=== PATIENT | female | born 1930 | race Caucasian/White ===

== ENCOUNTER 2018-11-28 11:52 | Inpatient (IN) | payer MEDICARE, OTHER | END 2018-12-02 20:57 | disposition short-term general hospital (02) | LOC: ED 11:52 → MED SURG 15:39 ==

== ENCOUNTER 2018-12-26 14:30 | Inpatient (IN) | payer MEDICARE, OTHER ==
--- NOTE | 2018-12-26 14:48 | ERPHSYRPT ---
- History of Present Illness Time Seen by Provider: 12/26/18 14:35 Source: patient, EMS Exam Limitations: no limitations Physician History: Patient has had extremity swelling and dyspnea for two weeks. Patient had her Lasix increased without any relief. Patient was referred to the emergency department due to having the swelling and no response to the Lasix. Timing/Duration: week(s) (2) Activities at Onset: rest Severity of Dyspnea-Max: moderate Severity of Dyspnea-Current: mild Possible Cause: frequent episodes Modifying Factors: Improves With: activity (worsens), lying down (worsens) Associated Symptoms: constant, edema, weakness, leg swelling (arms swelling), No chest pain/discomfort, No fever, No insomnia, No loss of appetite, No lightheadedness, No wheezing, No ankle swelling, No hemoptysis, No calf pain, No dizziness, No heaviness, No heart racing, No lightheadedness, No muscle spasms feet, No muscle spasms hands, No painful breathing, No productive cough, No sweating, No tightness, No tingling face International travel in last 2 weeks: No Allergies/Adverse Reactions: codeine Allergy (Verified 12/26/18 15:11) gabapentin Allergy (Verified 12/26/18 15:11) Penicillins Allergy (Verified 12/26/18 15:11) Home Medications: Allopurinol 100 mg [Zyloprim 100 mg] 100 mg PO DAILY 02/14/14 [History] Diltiazem HCl 240 mg [Cardizem CD 240 MG] 120 mg PO DAILY 02/14/14 [ History] Isosorbide Mononitrate 60 mg [Imdur 60MG] 60 mg PO QAM 02/14/14 [History] Loratadine 10 mg [Claritin 10 mg] 10 mg PO QAM 02/14/14 [History] Potassium Chloride 20 Meq [Klor-Con 20 MEQ] 20 meq PO DAILY 02/14/14 [History] Albuterol Sulfate [Ventolin Hfa] 8 gm IH Q4HPRN PRN 11/28/18 [History] Alprazolam 1 mg [Xanax 1 mg] 1 mg PO BID 11/28/18 [History] Apixaban [Eliquis] 2.5 mg PO BID 11/28/18 [History] Baclofen 10 mg PO BID 11/28/18 [History] Buspirone HCl 5 mg [Buspar 5 mg] 5 mg PO BIDPRN PRN 11/28/18 [History] Citalopram Hydrobromide [Citalopram HBr] 20 mg PO DAILY 11/28/18 [History] Fluticasone Propionate [Flonase NASAL] 1 spray NS HS 11/28/18 [History] Acetaminophen 325 mg [Tylenol 325 mg] 650 mg PO Q4HPRN PRN 12/26/18 [ History] Albuterol/Ipratropium 3ml Neb* [DUONEB 0.5-3 MG/3 ml Neb] 3 ml IH QID [History] Furosemide 40 mg [Lasix 40 MG] 40 mg PO DAILY 12/26/18 [History] Guaifenesin 600 mg ER [Mucinex 600MG ER Tabs] 600 mg PO Q6HPRN PRN [History] Magnesium Hydroxide 30 ml [Milk of Magnesia 30 ml] 30 ml PO DAILY PRN PRN 12/26/18 [History] Pantoprazole Sodium [Protonix] 40 mg PO DAILY 12/26/18 [History] Simvastatin 10 mg [Zocor 10MG] 10 mg PO QPM 12/26/18 [History] Hx Tetanus, Diphtheria Vaccination/Date Given: No Hx Influenza Vaccination/Date Given: Yes Hx Pneumococcal Vaccination/Date Given: Yes - Review of Systems Constitutional: No Fever, No Chills Eyes: No Eye Pain, No Vision Changes Ears, Nose, & Throat: No Mouth Pain, No Mouth Swelling, No Throat Swelling, No Painful Swallowing Respiratory: Dyspnea, No Cough Cardiac: Edema, No Chest Pain, No Syncope Abdominal/Gastrointestinal: No Abdominal Pain, No Nausea, No Vomiting, No Diarrhea, No Hematemesis, No Hematochezia, No Melena Genitourinary Symptoms: No Dysuria, No Hematuria, No Flank Pain Musculoskeletal: No Back Pain, No Neck Pain Skin: No Rash Neurological: No Dizziness, No Focal Weakness, No Headache, No Parasthesia, No Sensory Changes Psychological: No Emotional Lability Hematologic/Lymphatic: No Easy Bleeding, No Easy Bruising All Other Systems: Reviewed and Negative - Past Medical History Pertinent Past Medical History: Yes Neurological History: Peripheral Neuropathy, Stroke ENT History: Macular Degeneration Cardiac History: Coronary Artery Disease, Other Respiratory History: CHF, COPD, Sleep Apnea Endocrine Medical History: Hypothyroidism Musculoskeletal History: Arthritis GI Medical History: Hernia History: Renal Disease Other Medical History: BILATERAL MASECTOMY, HIATAL HERNIA SURGERY, ABDOMINAL HERNIA, CAROTID ARTERY SURGERY, anemia - Past Surgical History Past Surgical History: Yes Neuro Surgical History: No Pertinent History Cardiac: CABG, Cardiac Stent Respiratory: No Pertinent History Gastrointestinal: Hernia Repair Genitourinary: No Pertinent History Female Surgical History: Mastectomy Other Surgical History: bladder surgery, carotid artery surgery x2 Bilateral Mastectomy - Social History Smoking Status: Never smoker Exposure to second hand smoke: No Drug Use: none Patient Lives Alone: No - Nursing Vital Signs Nursing Vital Signs: Initial Vital Signs Temperature 98 F 12/26/18 14:31 Pulse Rate 92 H 12/26/18 14:31 Respiratory Rate 24 12/26/18 14:31 Blood Pressure 122/77 12/26/18 14:31 O2 Sat by Pulse Oximetry 80 L 12/26/18 14:31 Pain Scale Pain Intensity 0 - Physical Exam General Appearance: no apparent distress, alert Eye Exam: PERRL/EOMI, eyes nml inspection, No scleral icterus Ears, Nose, Throat Exam: hearing grossly normal, normal pharynx, No nasal congestion, No pharyngeal erythema Neck Exam: normal inspection, non-tender, supple, No Brudzinski, No JVD, No limited range of motion Respiratory Exam: airway intact, crackles/rales (crackles to mid lungs posteriorly), No respiratory distress, No rhonchi, No wheezing, No stridor Cardiovascular/Chest Exam: normal heart sounds, regular rate/rhythm, normal peripheral pulses, No JVD Abdominal/Gastrointestinal Exam: soft, No tenderness, No distention, No mass Extremity Exam: non-tender, normal range of motion, normal inspection, no calf tenderness Neurologic Exam: alert, oriented x 3, cooperative, service control operator II-XII nml as tested, sensation nml, No motor deficits Skin Exam: normal color, warm, No dry SpO2 Interpretation: hypoxic - Course Nursing assessment & vital signs reviewed: Yes EKG Interpreted by Me: RATE (99), A-fib, NORMAL AXIS, NORMAL INTERVALS, NORMAL QRS, NORMAL ST-T, Other (rare PVC; no change in comparison to EKG from 12/02/2018 ) - Radiology Exams Chest X-ray Interpretation: Interpreted by me, Reviewed by me, Other (per radiologist confirmation report: New subtle right upper lobe interstitial alveolar opacities. Chronic lung markings, calcified granulomas, cardiomegaly with CABG , osteopenia, degenerative changes and bilateral mastectomies with bilateral axillary yuan dissection.) Ordered Tests: Active Orders 24 hr Category Date Time Status Electrical Maintenance Worker STAT Care 12/26/18 14:41 Active Catheter-Bryant Fitzgerald STAT Care 12/26/18 14:37 Active EKG-ER Only STAT Care 12/26/18 14:37 Active IV Insertion STAT Care 12/26/18 14:37 Active Oxygen-ED Only Nasal Cannula 2 lpm Care 12/26/18 14:37 Active CHEST 1 VIEW (PORTABLE) Stat Exams 12/26/18 15:45 Completed BLOOD CULTURE Stat Lab 12/26/18 15:15 Received CBC W DIFF Stat Lab 12/26/18 14:55 Completed CMP Stat Lab 12/26/18 14:55 Completed CULTURE,URINE Stat Lab 12/26/18 15:37 Received Lactic Acid Stat Lab 12/26/18 15:05 Completed MAGNESIUM Stat Lab 12/26/18 14:55 Completed NT PRO BNP Stat Lab 12/26/18 14:55 Completed PROTIME WITH INR Stat Lab 12/26/18 14:55 Completed PTT Stat Lab 12/26/18 14:55 Completed TROPONIN Q3H Lab 12/26/18 14:55 Completed TROPONIN Q3H Lab 12/26/18 17:45 Ordered TROPONIN Q3H Lab 12/26/18 20:45 Ordered TROPONIN Q3H Lab 12/26/18 23:45 Ordered TROPONIN Q3H Lab 12/27/18 02:45 Ordered TSH [TSH, 3RD Generation] Stat Lab 12/26/18 14:55 Completed UA W/RFX UR CULTURE Stat Lab 12/26/18 15:42 Completed VENOUS BLOOD GAS Stat Lab 12/26/18 15:05 Completed Lab/Rad Data: Laboratory Result Diagrams 12/26/18 14:55 12/26/18 14:55 Laboratory Results 12/26/18 12/26/18 12/26/18 Range/Units 15:42 15:05 14:55 WBC (4.0-10.5) K/mm3 RBC (4.1-5.4) M/mm3 Hgb (12.0-16.0) gm/dl Hct (35-47) % MCV (78-100) fl MCH (26-32) pg MCHC (32-36) g/dl RDW (11.5-14.0) % Plt Count (150-450) K/mm3 MPV (6-9.5) fl Gran % (36.0-66.0) % Eos # (Auto) (0-0.5) Absolute Lymphs (auto) (1.0-4.6) Absolute Monos (auto) (0.0-1.3) Lymphocytes % (24.0-44.0) % Monocytes % (0.0-12.0) % Eosinophils % (0.00-5.0) % Basophils % (0.0-0.4) % Absolute Granulocytes (1.4-6.9) Basophils # (0-0.4) PT (9.95-12.35) SECONDS INR (0.8-3.0) APTT (25.3-37.0) SECONDS pO2/FiO2 Ratio 36.0 % VBG pH 7.33 (7.32-7.42) VBG pCO2 at Pat Temp 90 H* (42-55) mm/Hg VBG pO2 at Pat Temp 26 (25-40) mm/Hg VBG HCO3 47.5 H* (22-28) meq/L VBG O2 Sat (Adelfo) 57.9 L (95-100) VBG Base Excess 17.9 H (-2.0-2.0) VBG Hemoglobin 10.9 VBG Carboxyhemoglobin 3.2 (0.0-6.9) % T HGB POC Potassium 4.3 (3.5-5.1) Sodium (137-145) mmol/L Potassium (3.5-5.1) mmol/L Chloride (98-107) mmol/L Carbon Dioxide (22-30) mmol/L Anion Gap (5-15) MEQ/L BUN (7-17) mg/dL Creatinine (0.52-1.04) mg/dL Estimated GFR ML/MIN Glucose (74-106) mg/dL Lactic Acid 0.9 (0.4-2.0) Calcium (8.4-10.2) mg/dL Magnesium (1.6-2.3) mg/dL Total Bilirubin (0.2-1.3) mg/dL AST (14-36) U/L ALT (0-35) U/L Alkaline Phosphatase (38-126) U/L Troponin I (0.000-0.034) ng/mL NT-Pro-B Natriuret Pep (0-1800) pg/mL Serum Total Protein (6.3-8.2) g/dL Albumin (3.5-5.0) g/dL TSH 3rd Generation 5.530 H (0.47-4.68) mIU/L Urine Color YELLOW (YELLOW) Urine Appearance CLEAR (CLEAR) Urine pH 5.0 (5-6) Ur Specific [place] 1.006 (1.005-1.025) Urine Protein NEGATIVE (Negative) Urine Ketones NEGATIVE (NEGATIVE) Urine Blood NEGATIVE (0-5) Raudel/ul Urine Nitrite NEGATIVE (NEGATIVE) Urine Bilirubin NEGATIVE (NEGATIVE) Urine Urobilinogen NEGATIVE (0-1) mg/dL Ur Leukocyte Esterase NEGATIVE (NEGATIVE) Urine WBC (Auto) NONE (0-5) /HPF Urine RBC (Auto) NONE (0-2) /HPF U Hyaline Cast (Auto) 6-10 (0-2) /LPF U Epithel Cells (Auto) NONE (FEW) /HPF Urine Bacteria (Auto) NONE (NEGATIVE) /HPF Urine Mucus (Auto) SLIGHT (NEGATIVE) /HPF Urine Culture Reflexed ORDERED SEPARATELY (NO) Urine Glucose NEGATIVE (NEGATIVE) mg/dL Slides for Path Review 12/26/18 12/26/18 12/26/18 Range/Units 14:55 14:55 14:55 WBC (4.0-10.5) K/mm3 RBC (4.1-5.4) M/mm3 Hgb (12.0-16.0) gm/dl Hct (35-47) % MCV (78-100) fl MCH (26-32) pg MCHC (32-36) g/dl RDW (11.5-14.0) % Plt Count (150-450) K/mm3 MPV (6-9.5) fl Gran % (36.0-66.0) % Eos # (Auto) (0-0.5) Absolute Lymphs (auto) (1.0-4.6) Absolute Monos (auto) (0.0-1.3) Lymphocytes % (24.0-44.0) % Monocytes % (0.0-12.0) % Eosinophils % (0.00-5.0) % Basophils % (0.0-0.4) % Absolute Granulocytes (1.4-6.9) Basophils # (0-0.4) PT 22.0 H (9.95-12.35) SECONDS INR 1.92 (0.8-3.0) APTT 38.2 H (25.3-37.0) SECONDS pO2/FiO2 Ratio % VBG pH (7.32-7.42) VBG pCO2 at Pat Temp (42-55) mm/Hg VBG pO2 at Pat Temp (25-40) mm/Hg VBG HCO3 (22-28) meq/L VBG O2 Sat (Adelfo) (95-100) VBG Base Excess (-2.0-2.0) VBG Hemoglobin VBG Carboxyhemoglobin (0.0-6.9) % T HGB POC Potassium (3.5-5.1) Sodium 140 (137-145) mmol/L Potassium 4.5 (3.5-5.1) mmol/L Chloride 90 L (98-107) mmol/L Carbon Dioxide 42 H (22-30) mmol/L Anion Gap 12.5 (5-15) MEQ/L BUN 17 (7-17) mg/dL Creatinine 1.04 (0.52-1.04) mg/dL Estimated GFR 53.4 ML/MIN Glucose 124 H (74-106) mg/dL Lactic Acid (0.4-2.0) Calcium 9.6 (8.4-10.2) mg/dL Magnesium 1.5 L (1.6-2.3) mg/dL Total Bilirubin 0.70 (0.2-1.3) mg/dL AST 28 (14-36) U/L ALT 15 (0-35) U/L Alkaline Phosphatase 63 (38-126) U/L Troponin I 0.021 (0.000-0.034) ng/mL NT-Pro-B Natriuret Pep 2560 H (0-1800) pg/mL Serum Total Protein 6.3 (6.3-8.2) g/dL Albumin 3.6 (3.5-5.0) g/dL TSH 3rd Generation (0.47-4.68) mIU/L Urine Color (YELLOW) Urine Appearance (CLEAR) Urine pH (5-6) Ur Specific [place] (1.005-1.025) Urine Protein (Negative) Urine Ketones (NEGATIVE) Urine Blood (0-5) Raudel/ul Urine Nitrite (NEGATIVE) Urine Bilirubin (NEGATIVE) Urine Urobilinogen (0-1) mg/dL Ur Leukocyte Esterase (NEGATIVE) Urine WBC (Auto) (0-5) /HPF Urine RBC (Auto) (0-2) /HPF U Hyaline Cast (Auto) (0-2) /LPF U Epithel Cells (Auto) (FEW) /HPF Urine Bacteria (Auto) (NEGATIVE) /HPF Urine Mucus (Auto) (NEGATIVE) /HPF Urine Culture Reflexed (NO) Urine Glucose (NEGATIVE) mg/dL Slides for Path Review 12/26/18 Range/Units 14:55 WBC 4.4 (4.0-10.5) K/mm3 RBC 3.53 L (4.1-5.4) M/mm3 Hgb 10.7 L (12.0-16.0) gm/dl Hct 37.3 (35-47) % MCV 105.7 H (78-100) fl MCH 30.3 (26-32) pg MCHC 28.7 L (32-36) g/dl RDW 15.0 H (11.5-14.0) % Plt Count 196 (150-450) K/mm3 MPV 11.6 H (6-9.5) fl Gran % 65.2 (36.0-66.0) % Eos # (Auto) 0.11 (0-0.5) Absolute Lymphs (auto) 0.76 L (1.0-4.6) Absolute Monos (auto) 0.64 (0.0-1.3) Lymphocytes % 17.3 L (24.0-44.0) % Monocytes % 14.5 H (0.0-12.0) % Eosinophils % 2.5 (0.00-5.0) % Basophils % 0.5 (0.0-0.4) % Absolute Granulocytes 2.87 (1.4-6.9) Basophils # 0.02 (0-0.4) PT (9.95-12.35) SECONDS INR (0.8-3.0) APTT (25.3-37.0) SECONDS pO2/FiO2 Ratio % VBG pH (7.32-7.42) VBG pCO2 at Pat Temp (42-55) mm/Hg VBG pO2 at Pat Temp (25-40) mm/Hg VBG HCO3 (22-28) meq/L VBG O2 Sat (Adelfo) (95-100) VBG Base Excess (-2.0-2.0) VBG Hemoglobin VBG Carboxyhemoglobin (0.0-6.9) % T HGB POC Potassium (3.5-5.1) Sodium (137-145) mmol/L Potassium (3.5-5.1) mmol/L Chloride (98-107) mmol/L Carbon Dioxide (22-30) mmol/L Anion Gap (5-15) MEQ/L BUN (7-17) mg/dL Creatinine (0.52-1.04) mg/dL Estimated GFR ML/MIN Glucose (74-106) mg/dL Lactic Acid (0.4-2.0) Calcium (8.4-10.2) mg/dL Magnesium (1.6-2.3) mg/dL Total Bilirubin (0.2-1.3) mg/dL AST (14-36) U/L ALT (0-35) U/L Alkaline Phosphatase (38-126) U/L Troponin I (0.000-0.034) ng/mL NT-Pro-B Natriuret Pep (0-1800) pg/mL Serum Total Protein (6.3-8.2) g/dL Albumin (3.5-5.0) g/dL TSH 3rd Generation (0.47-4.68) mIU/L Urine Color (YELLOW) Urine Appearance (CLEAR) Urine pH (5-6) Ur Specific [place] (1.005-1.025) Urine Protein (Negative) Urine Ketones (NEGATIVE) Urine Blood (0-5) Raudel/ul Urine Nitrite (NEGATIVE) Urine Bilirubin (NEGATIVE) Urine Urobilinogen (0-1) mg/dL Ur Leukocyte Esterase (NEGATIVE) Urine WBC (Auto) (0-5) /HPF Urine RBC (Auto) (0-2) /HPF U Hyaline Cast (Auto) (0-2) /LPF U Epithel Cells (Auto) (FEW) /HPF Urine Bacteria (Auto) (NEGATIVE) /HPF Urine Mucus (Auto) (NEGATIVE) /HPF Urine Culture Reflexed (NO) Urine Glucose (NEGATIVE) mg/dL Slides for Path Review YES - Progress Progress: unchanged Air Movement: fair Progress Note: 12/26/18 16:45 Patient is resting comfortably and in no respiratory distress. 12/26/18 16:[address] Broderick, Hospitalist. Dr Broderick accepted patient for admission and we discussed starting the patient on Cefepime due to coming from shelter and for pseudomonas coverage. Blood Culture(s) Obtained: Yes Antibiotics given: Yes Discussed with .: Wilmar Will see patient in: hospital (full admit) - Departure Departure Disposition: Home, In-patient Admission Clinical Impression: Peripheral edema, Elevated blood pressure reading without diagnosis of hypertension Right upper lobe pneumonia Qualifiers: Pneumonia type: due to unspecified organism Qualified Code(s): J18.1 - Lobar pneumonia, unspecified organism Dyspnea Qualifiers: Dyspnea type: shortness of breath Qualified Code(s): R06.02 - Shortness of breath; R06.00 - Dyspnea, unspecified; R06.01 - Orthopnea Hypothyroid Qualifiers: Hypothyroidism type: unspecified Qualified Code(s): E03.9 - Hypothyroidism, unspecified Condition: Fair Critical Care Time: No Referrals: OMAR TRIAPTHI [Primary Care Provider] -
[2018-12-26 15:10] LABS: Lactic Acid 0.9 (0.4-2.0); VBG BASE EXCESS 17.9 (-2.0-2.0); VBG CARBOXYHEMOGLOBIN 3.2 % T HGB (0.0-6.9); VBG HCO3- 47.5 meq/L (22-28); VBG HEMOGLOBIN 10.9; VBG O2 SATURATION 57.9 (95-100); VBG POTASSIUM 4.3 (3.5-5.1); VBG pH 7.33 (7.32-7.42)
[2018-12-26 15:11] LABS: BASOPHIL % 0.5 % (0.0-0.4); Basophil (Absolute #) 0.02 (0-0.4); Eosinophil % 2.5 % (0.00-5.0); Eosinophil (Absolute #) 0.11 (0-0.5); Granulocyte Absolute (ANC) 2.87 (1.4-6.9); Granulocytes % 65.2 % (36.0-66.0); Hematocrit 37.3 % (35-47); Hemoglobin 10.7 gm/dl (12.0-16.0); Lymphocyte (Absolute #) 0.76 (1.0-4.6); Lymphocytes % 17.3 % (24.0-44.0); Mean Cell Volume 105.7 fl (78-100); Mean Corpuscular Hemoglobin 30.3 pg (26-32); Mean Corpuscular Hgb Concent. 28.7 g/dl (32-36); Mean Platelet Volume 11.6 fl (6-9.5); Monocyte (Absolute #) 0.64 (0.0-1.3); Monocytes % 14.5 % (0.0-12.0); Platelet Count 196 K/mm3 (150-450); Red Blood Count 3.53 M/mm3 (4.1-5.4); White Blood Count 4.4 K/mm3 (4.0-10.5)
[2018-12-26 15:34] LABS: INR 1.92 (0.8-3.0)
[2018-12-26 15:37] LABS: PTT 38.2 SECONDS (25.3-37.0)
[2018-12-26 15:47] LABS: Appearance CLEAR (CLEAR); Bilirubin NEGATIVE (NEGATIVE); Blood NEGATIVE Ery/ul (0-5); Glucose NEGATIVE (NEGATIVE); Ketones NEGATIVE (NEGATIVE); Leukocyte Esterase NEGATIVE (NEGATIVE); Mucus SLIGHT /HPF (NEGATIVE); Nitrite NEGATIVE (NEGATIVE); Protein,Urine Dip NEGATIVE (Negative); Specific Gravity 1.006 (1.005-1.025); Urobilinogen NEGATIVE mg/dL (0-1)
[2018-12-26 15:47] LABS: ALBUMIN 3.6 g/dL (3.5-5.0); BILIRUBIN,TOTAL 0.7 mg/dL (0.2-1.3); Calcium 9.6 mg/dL (8.4-10.2); Creatinine 1 1.04 mg/dL (0.52-1.04); MAGNESIUM 1.5 mg/dL (1.6-2.3); Potassium 4.5 mmol/L (3.5-5.1); Total Protein 6.3 g/dL (6.3-8.2)
[2018-12-26 15:49] LABS: ANION GAP 12.5 MEQ/L (5-15)
[2018-12-26 15:52] LABS: Slide Review 1 YES
--- NOTE | 2018-12-26 16:23 | XRAY ---
Indication: Cough and congestion. Comparison: November 28, 2018. Portable chest demonstrates new subtle right upper lobe interstitial alveolar opacities. Stable chronic lung markings, calcified granulomas, cardiomegaly with CABG, osteopenia, bony degenerative changes and bilateral mastectomies with bilateral axillary yuan dissection.
[2018-12-26] MEDS ORDERED: TYLENOL 325 MG PO PRN (17:11)
[2018-12-26] MEDS ORDERED: BUSPAR 5 MG PO PRN (21:34)
[2018-12-26] MEDS ORDERED: Mucinex 600MG ER Tabs PO PRN (21:36)
[2018-12-26] MEDS ORDERED: ELAVIL 25 MG PO SCH (22:00)
[2018-12-26] MEDS: Flonase NASAL NS SCH (22:23)
[2018-12-26] MEDS: ELIQUIS 2.5 MG TABLET PO SCH (22:23)
[2018-12-26] MEDS: CLARITIN 10 MG PO SCH (22:23)
[2018-12-26] MEDS: LIORESAL 10 MG PO SCH (22:24)
[2018-12-26] MEDS: MAXIPIME 1 GM** 1 G in Dextrose 5%/Water IV Soln. 100ML PLUS BAG 100 ML IV SCH (22:26)
[2018-12-26] MEDS: XANAX 1 MG PO SCH (22:26)
[2018-12-26] MEDS: Pepcid 20 MG PO SCH (22:26)
[2018-12-26] MEDS: Zocor 10MG PO SCH (22:26)
[2018-12-27] MEDS: TYLENOL 325 MG PO PRN ×2 (00:22→21:36)
[2018-12-27 03:09] LABS: Hematocrit 33.6 % (35-47); Mean Corpuscular Hgb Concent. 29.8 g/dl (32-36); Mean Platelet Volume 11.8 fl (6-9.5); Platelet Count 176 K/mm3 (150-450); Red Blood Count 3.23 M/mm3 (4.1-5.4); Red Cell Distribution Width 14.9 % (11.5-14.0)
[2018-12-27 03:12] LABS: Mean Corpuscular Hemoglobin 30.9 pg (26-32)
[2018-12-27 03:38] LABS: Calcium 9.5 mg/dL (8.4-10.2); Potassium 4.4 mmol/L (3.5-5.1)
[2018-12-27 03:40] LABS: ANION GAP 11.4 MEQ/L (5-15)
--- NOTE | 2018-12-27 08:17 | PCM.HP ---
History of Present Illness - Chief Complaint Chief Complaint: RUL Pneumonia, Dyspnea, Edema History of Present Illness: is a 88 year old female who has been ill over the past couple of days with worsening swelling. She has had a cough and increasing weakness over the past few days, there has been no fever. - Review of Systems Constitutional: No Fever, No Chills Respiratory: Cough Cardiac: Other (peripheral edema), No Chest Pain, No Edema, No Syncope Abdominal/Gastrointestinal: No Abdominal Pain, No Nausea, No Vomiting, No Diarrhea Skin: No Rash All Other Systems: Reviewed and Negative Medications & Allergies Home Medications: Home Medication List Allopurinol 100 mg [Zyloprim 100 mg] 100 mg PO DAILY 02/14/14 [History Confirmed 12/26/18] Diltiazem HCl 240 mg [Cardizem CD 240 MG] 120 mg PO DAILY 02/14/14 [ History Confirmed 12/26/18] Isosorbide Mononitrate 60 mg [Imdur 60MG] 60 mg PO QAM 02/14/14 [History Confirmed 12/26/18] Loratadine 10 mg [Claritin 10 mg] 10 mg PO QHS 02/14/14 [History Confirmed 12/26/18] Albuterol Sulfate [Ventolin Hfa] 8 gm IH Q4HPRN PRN 11/28/18 [History Confirmed 12/26/18] Alprazolam 1 mg [Xanax 1 mg] 0.5 mg PO BID 11/28/18 [History Confirmed ] Apixaban [Eliquis] 2.5 mg PO BID 11/28/18 [History Confirmed 12/26/18] Baclofen 10 mg PO BID 11/28/18 [History Confirmed 12/26/18] Buspirone HCl 5 mg [Buspar 5 mg] 5 mg PO BIDPRN PRN 11/28/18 [History Confirmed 12/26/18] Citalopram Hydrobromide [Citalopram HBr] 20 mg PO DAILY 11/28/18 [History Confirmed 12/26/18] Fluticasone Propionate [Flonase NASAL] 1 spray NS HS 11/28/18 [History Confirmed 12/26/18] Acetaminophen 325 mg [Tylenol 325 mg] 650 mg PO Q4HPRN PRN 12/26/18 [ History Confirmed 12/26/18] Albuterol/Ipratropium 3ml Neb* [DUONEB 0.5-3 MG/3 ml Neb] 3 ml IH QID [History Confirmed 12/26/18] Alprazolam 1 mg [Xanax 1 mg] 1 mg PO QHS 12/26/18 [History Confirmed 12/26] Furosemide 40 mg [Lasix 40 MG] 40 mg PO DAILY 12/26/18 [History Confirmed 12/26/18] Guaifenesin 600 mg ER [Mucinex 600MG ER Tabs] 600 mg PO Q6HPRN PRN [History Confirmed 12/26/18] Magnesium Hydroxide 30 ml [Milk of Magnesia 30 ml] 30 ml PO DAILY PRN PRN 12/26/18 [History Confirmed 12/26/18] Pantoprazole Sodium [Protonix] 40 mg PO DAILY 12/26/18 [History Confirmed ] Simvastatin 10 mg [Zocor 10MG] 10 mg PO QPM 12/26/18 [History Confirmed ] Allergies/Adverse Reactions: Allergies Allergy/AdvReac Type Severity Reaction Status Date / Time codeine Allergy Verified 12/26/18 15:11 gabapentin Allergy Verified 12/26/18 15:11 Penicillins Allergy Verified 12/26/18 15:11 - Past Medical History Past Medical History: Yes Neurological History: Peripheral Neuropathy, Stroke ENT History: Macular Degeneration Cardiac History: Coronary Artery Disease, Other CARDIAC HISTORY: Arrhythmia Respiratory History: CHF, COPD, Sleep Apnea Endocrine Medical History: Hypothyroidism Musculoskelatal History: Arthritis GI Medical History: Hernia History: Renal Disease Reproductive Disorders: No Pertinent History Comment: BILATERAL MASECTOMY, HIATAL HERNIA SURGERY, ABDOMINAL HERNIA, CAROTID ARTERY SURGERY, anemia - Female History Are you now?: No - Past Surgical History Past Surgical History: Yes Neuro Surgical History: No Pertinent History Cardiac History: CABG, Cardiac Stent Respiratory Surgery: No Pertinent History GI Surgical History: Hernia Repair Genitourinary Surgical Hx: No Pertinent History Female Surgical History: Mastectomy Other Surgical History: bladder surgery, carotid artery surgery x2 Bilateral Mastectomy - Social History Smoking Status: Former smoker Exposure to second hand smoke: No Alcohol: None Drug Use: none - Physical Exam Vital Signs: Vital Signs - 24 hr Temp Pulse Resp BP Pulse Ox 12/27/18 07:52 98.7 F 95 H 16 119/71 94 L 12/27/18 06:47 96 12/27/18 04:03 98.2 F 88 22 129/69 93 L 12/27/18 00:11 98.4 F 102 H 18 120/59 90 L 12/26/18 19:32 97.2 F 106 H 136/70 90 L 12/26/18 18:58 90 L 12/26/18 17:45 93 L 12/26/18 17:32 97.2 F 106 H 18 136/70 12/26/18 17:06 98.3 F 100 H 28 H 140/74 96 12/26/18 16:49 98 H 144/81 97 12/26/18 15:54 98.1 F 94 H 22 136/72 97 12/26/18 15:39 102 H 24 142/76 97 12/26/18 14:31 98 F 92 H 24 122/77 80 L Oxygen-Last 24 hours O2 Percentage 5 Liters = 40% O2 Percentage 5 Liters = 40% O2 Percentage 5 Liters = 40% O2 Percentage 5 Liters = 40% O2 Percentage 4 Liters = 36% O2 Percentage 4 Liters = 36% O2 Percentage 4 Liters = 36% O2 Percentage 4 Liters = 36% O2 Percentage 4 Liters = 36% O2 Percentage 2 Liters = 28% Oxygen Flowrate (L/min)-RT 5 General Appearance: no apparent distress Neurologic Exam: alert Respiratory Exam: crackles/rales Cardiovascular Exam: regular rate/rhythm, normal heart sounds, normal peripheral pulses Gastrointestinal/Abdomen Exam: soft, normal bowel sounds, No tenderness, No mass Extremity Exam: pedal edema, swelling Skin Exam: normal color, warm, dry, No rash Results - Labs Lab/Micro Results: Lab Results-Last 24 Hours 12/26/18 12/26/18 12/26/18 Range/Units 14:55 14:55 14:55 WBC 4.4 (4.0-10.5) K/mm3 RBC 3.53 L (4.1-5.4) M/mm3 Hgb 10.7 L (12.0-16.0) gm/dl Hct 37.3 (35-47) % MCV 105.7 H (78-100) fl MCH 30.3 (26-32) pg MCHC 28.7 L (32-36) g/dl RDW 15.0 H (11.5-14.0) % Plt Count 196 (150-450) K/mm3 MPV 11.6 H (6-9.5) fl Gran % 65.2 (36.0-66.0) % Eos # (Auto) 0.11 (0-0.5) Absolute Lymphs (auto) 0.76 L (1.0-4.6) Absolute Monos (auto) 0.64 (0.0-1.3) Lymphocytes % 17.3 L (24.0-44.0) % Monocytes % 14.5 H (0.0-12.0) % Eosinophils % 2.5 (0.00-5.0) % Basophils % 0.5 (0.0-0.4) % Absolute Granulocytes 2.87 (1.4-6.9) Basophils # 0.02 (0-0.4) PT 22.0 H (9.95-12.35) SECONDS INR 1.92 (0.8-3.0) APTT 38.2 H (25.3-37.0) SECONDS pO2/FiO2 Ratio % VBG pH (7.32-7.42) VBG pCO2 at Pat Temp (42-55) mm/Hg VBG pO2 at Pat Temp (25-40) mm/Hg VBG HCO3 (22-28) meq/L VBG O2 Sat (Adelfo) (95-100) VBG Base Excess (-2.0-2.0) VBG Hemoglobin VBG Carboxyhemoglobin (0.0-6.9) % T HGB POC Potassium (3.5-5.1) Sodium 140 (137-145) mmol/L Potassium 4.5 (3.5-5.1) mmol/L Chloride 90 L (98-107) mmol/L Carbon Dioxide 42 H (22-30) mmol/L Anion Gap 12.5 (5-15) MEQ/L BUN 17 (7-17) mg/dL Creatinine 1.04 (0.52-1.04) mg/dL Estimated GFR 53.4 ML/MIN Glucose 124 H (74-106) mg/dL Lactic Acid (0.4-2.0) Calcium 9.6 (8.4-10.2) mg/dL Magnesium 1.5 L (1.6-2.3) mg/dL Total Bilirubin 0.70 (0.2-1.3) mg/dL AST 28 (14-36) U/L ALT 15 (0-35) U/L Alkaline Phosphatase 63 (38-126) U/L Troponin I (0.000-0.034) ng/mL NT-Pro-B Natriuret Pep 2560 H (0-1800) pg/mL Serum Total Protein 6.3 (6.3-8.2) g/dL Albumin 3.6 (3.5-5.0) g/dL TSH 3rd Generation (0.47-4.68) mIU/L Urine Color (YELLOW) Urine Appearance (CLEAR) Urine pH (5-6) Ur Specific [place] (1.005-1.025) Urine Protein (Negative) Urine Ketones (NEGATIVE) Urine Blood (0-5) Raudel/ul Urine Nitrite (NEGATIVE) Urine Bilirubin (NEGATIVE) Urine Urobilinogen (0-1) mg/dL Ur Leukocyte Esterase (NEGATIVE) Urine WBC (Auto) (0-5) /HPF Urine RBC (Auto) (0-2) /HPF U Hyaline Cast (Auto) (0-2) /LPF U Epithel Cells (Auto) (FEW) /HPF Urine Bacteria (Auto) (NEGATIVE) /HPF Urine Mucus (Auto) (NEGATIVE) /HPF Urine Culture Reflexed (NO) Urine Glucose (NEGATIVE) mg/dL Slides for Path Review YES 12/26/18 12/26/18 12/26/18 Range/Units 14:55 14:55 15:05 WBC (4.0-10.5) K/mm3 RBC (4.1-5.4) M/mm3 Hgb (12.0-16.0) gm/dl Hct (35-47) % MCV (78-100) fl MCH (26-32) pg MCHC (32-36) g/dl RDW (11.5-14.0) % Plt Count (150-450) K/mm3 MPV (6-9.5) fl Gran % (36.0-66.0) % Eos # (Auto) (0-0.5) Absolute Lymphs (auto) (1.0-4.6) Absolute Monos (auto) (0.0-1.3) Lymphocytes % (24.0-44.0) % Monocytes % (0.0-12.0) % Eosinophils % (0.00-5.0) % Basophils % (0.0-0.4) % Absolute Granulocytes (1.4-6.9) Basophils # (0-0.4) PT (9.95-12.35) SECONDS INR (0.8-3.0) APTT (25.3-37.0) SECONDS pO2/FiO2 Ratio 36.0 % VBG pH 7.33 (7.32-7.42) VBG pCO2 at Pat Temp 90 H* (42-55) mm/Hg VBG pO2 at Pat Temp 26 (25-40) mm/Hg VBG HCO3 47.5 H* (22-28) meq/L VBG O2 Sat (Adelfo) 57.9 L (95-100) VBG Base Excess 17.9 H (-2.0-2.0) VBG Hemoglobin 10.9 VBG Carboxyhemoglobin 3.2 (0.0-6.9) % T HGB POC Potassium 4.3 (3.5-5.1) Sodium (137-145) mmol/L Potassium (3.5-5.1) mmol/L Chloride (98-107) mmol/L Carbon Dioxide (22-30) mmol/L Anion Gap (5-15) MEQ/L BUN (7-17) mg/dL Creatinine (0.52-1.04) mg/dL Estimated GFR ML/MIN Glucose (74-106) mg/dL Lactic Acid 0.9 (0.4-2.0) Calcium (8.4-10.2) mg/dL Magnesium (1.6-2.3) mg/dL Total Bilirubin (0.2-1.3) mg/dL AST (14-36) U/L ALT (0-35) U/L Alkaline Phosphatase (38-126) U/L Troponin I 0.021 (0.000-0.034) ng/mL NT-Pro-B Natriuret Pep (0-1800) pg/mL Serum Total Protein (6.3-8.2) g/dL Albumin (3.5-5.0) g/dL TSH 3rd Generation 5.530 H (0.47-4.68) mIU/L Urine Color (YELLOW) Urine Appearance (CLEAR) Urine pH (5-6) Ur Specific [place] (1.005-1.025) Urine Protein (Negative) Urine Ketones (NEGATIVE) Urine Blood (0-5) Raudel/ul Urine Nitrite (NEGATIVE) Urine Bilirubin (NEGATIVE) Urine Urobilinogen (0-1) mg/dL Ur Leukocyte Esterase (NEGATIVE) Urine WBC (Auto) (0-5) /HPF Urine RBC (Auto) (0-2) /HPF U Hyaline Cast (Auto) (0-2) /LPF U Epithel Cells (Auto) (FEW) /HPF Urine Bacteria (Auto) (NEGATIVE) /HPF Urine Mucus (Auto) (NEGATIVE) /HPF Urine Culture Reflexed (NO) Urine Glucose (NEGATIVE) mg/dL Slides for Path Review 12/26/18 12/26/18 12/26/18 Range/Units 15:42 18:00 21:02 WBC (4.0-10.5) K/mm3 RBC (4.1-5.4) M/mm3 Hgb (12.0-16.0) gm/dl Hct (35-47) % MCV (78-100) fl MCH (26-32) pg MCHC (32-36) g/dl RDW (11.5-14.0) % Plt Count (150-450) K/mm3 MPV (6-9.5) fl Gran % (36.0-66.0) % Eos # (Auto) (0-0.5) Absolute Lymphs (auto) (1.0-4.6) Absolute Monos (auto) (0.0-1.3) Lymphocytes % (24.0-44.0) % Monocytes % (0.0-12.0) % Eosinophils % (0.00-5.0) % Basophils % (0.0-0.4) % Absolute Granulocytes (1.4-6.9) Basophils # (0-0.4) PT (9.95-12.35) SECONDS INR (0.8-3.0) APTT (25.3-37.0) SECONDS pO2/FiO2 Ratio % VBG pH (7.32-7.42) VBG pCO2 at Pat Temp (42-55) mm/Hg VBG pO2 at Pat Temp (25-40) mm/Hg VBG HCO3 (22-28) meq/L VBG O2 Sat (Adelfo) (95-100) VBG Base Excess (-2.0-2.0) VBG Hemoglobin VBG Carboxyhemoglobin (0.0-6.9) % T HGB POC Potassium (3.5-5.1) Sodium (137-145) mmol/L Potassium (3.5-5.1) mmol/L Chloride (98-107) mmol/L Carbon Dioxide (22-30) mmol/L Anion Gap (5-15) MEQ/L BUN (7-17) mg/dL Creatinine (0.52-1.04) mg/dL Estimated GFR ML/MIN Glucose (74-106) mg/dL Lactic Acid (0.4-2.0) Calcium (8.4-10.2) mg/dL Magnesium (1.6-2.3) mg/dL Total Bilirubin (0.2-1.3) mg/dL AST (14-36) U/L ALT (0-35) U/L Alkaline Phosphatase (38-126) U/L Troponin I 0.022 0.026 (0.000-0.034) ng/mL NT-Pro-B Natriuret Pep (0-1800) pg/mL Serum Total Protein (6.3-8.2) g/dL Albumin (3.5-5.0) g/dL TSH 3rd Generation (0.47-4.68) mIU/L Urine Color YELLOW (YELLOW) Urine Appearance CLEAR (CLEAR) Urine pH 5.0 (5-6) Ur Specific [place] 1.006 (1.005-1.025) Urine Protein NEGATIVE (Negative) Urine Ketones NEGATIVE (NEGATIVE) Urine Blood NEGATIVE (0-5) Raudel/ul Urine Nitrite NEGATIVE (NEGATIVE) Urine Bilirubin NEGATIVE (NEGATIVE) Urine Urobilinogen NEGATIVE (0-1) mg/dL Ur Leukocyte Esterase NEGATIVE (NEGATIVE) Urine WBC (Auto) NONE (0-5) /HPF Urine RBC (Auto) NONE (0-2) /HPF U Hyaline Cast (Auto) 6-10 (0-2) /LPF U Epithel Cells (Auto) NONE (FEW) /HPF Urine Bacteria (Auto) NONE (NEGATIVE) /HPF Urine Mucus (Auto) SLIGHT (NEGATIVE) /HPF Urine Culture Reflexed ORDERED SEPARATELY (NO) Urine Glucose NEGATIVE (NEGATIVE) mg/dL Slides for Path Review 12/26/18 12/27/18 12/27/18 Range/Units 23:29 03:08 03:08 WBC 4.0 (4.0-10.5) K/mm3 RBC 3.23 L (4.1-5.4) M/mm3 Hgb 10.0 L (12.0-16.0) gm/dl Hct 33.6 L (35-47) % MCV 104.0 H (78-100) fl MCH 30.9 (26-32) pg MCHC 29.8 L (32-36) g/dl RDW 14.9 H (11.5-14.0) % Plt Count 176 (150-450) K/mm3 MPV 11.8 H (6-9.5) fl Gran % (36.0-66.0) % Eos # (Auto) (0-0.5) Absolute Lymphs (auto) (1.0-4.6) Absolute Monos (auto) (0.0-1.3) Lymphocytes % (24.0-44.0) % Monocytes % (0.0-12.0) % Eosinophils % (0.00-5.0) % Basophils % (0.0-0.4) % Absolute Granulocytes (1.4-6.9) Basophils # (0-0.4) PT (9.95-12.35) SECONDS INR (0.8-3.0) APTT (25.3-37.0) SECONDS pO2/FiO2 Ratio % VBG pH (7.32-7.42) VBG pCO2 at Pat Temp (42-55) mm/Hg VBG pO2 at Pat Temp (25-40) mm/Hg VBG HCO3 (22-28) meq/L VBG O2 Sat (Adelfo) (95-100) VBG Base Excess (-2.0-2.0) VBG Hemoglobin VBG Carboxyhemoglobin (0.0-6.9) % T HGB POC Potassium (3.5-5.1) Sodium (137-145) mmol/L Potassium (3.5-5.1) mmol/L Chloride (98-107) mmol/L Carbon Dioxide (22-30) mmol/L Anion Gap (5-15) MEQ/L BUN (7-17) mg/dL Creatinine (0.52-1.04) mg/dL Estimated GFR ML/MIN Glucose (74-106) mg/dL Lactic Acid (0.4-2.0) Calcium (8.4-10.2) mg/dL Magnesium (1.6-2.3) mg/dL Total Bilirubin (0.2-1.3) mg/dL AST (14-36) U/L ALT (0-35) U/L Alkaline Phosphatase (38-126) U/L Troponin I 0.028 0.037 H* (0.000-0.034) ng/mL NT-Pro-B Natriuret Pep (0-1800) pg/mL Serum Total Protein (6.3-8.2) g/dL Albumin (3.5-5.0) g/dL TSH 3rd Generation (0.47-4.68) mIU/L Urine Color (YELLOW) Urine Appearance (CLEAR) Urine pH (5-6) Ur Specific [place] (1.005-1.025) Urine Protein (Negative) Urine Ketones (NEGATIVE) Urine Blood (0-5) Raudel/ul Urine Nitrite (NEGATIVE) Urine Bilirubin (NEGATIVE) Urine Urobilinogen (0-1) mg/dL Ur Leukocyte Esterase (NEGATIVE) Urine WBC (Auto) (0-5) /HPF Urine RBC (Auto) (0-2) /HPF U Hyaline Cast (Auto) (0-2) /LPF U Epithel Cells (Auto) (FEW) /HPF Urine Bacteria (Auto) (NEGATIVE) /HPF Urine Mucus (Auto) (NEGATIVE) /HPF Urine Culture Reflexed (NO) Urine Glucose (NEGATIVE) mg/dL Slides for Path Review 12/27/18 Range/Units 03:08 WBC (4.0-10.5) K/mm3 RBC (4.1-5.4) M/mm3 Hgb (12.0-16.0) gm/dl Hct (35-47) % MCV (78-100) fl MCH (26-32) pg MCHC (32-36) g/dl RDW (11.5-14.0) % Plt Count (150-450) K/mm3 MPV (6-9.5) fl Gran % (36.0-66.0) % Eos # (Auto) (0-0.5) Absolute Lymphs (auto) (1.0-4.6) Absolute Monos (auto) (0.0-1.3) Lymphocytes % (24.0-44.0) % Monocytes % (0.0-12.0) % Eosinophils % (0.00-5.0) % Basophils % (0.0-0.4) % Absolute Granulocytes (1.4-6.9) Basophils # (0-0.4) PT (9.95-12.35) SECONDS INR (0.8-3.0) APTT (25.3-37.0) SECONDS pO2/FiO2 Ratio % VBG pH (7.32-7.42) VBG pCO2 at Pat Temp (42-55) mm/Hg VBG pO2 at Pat Temp (25-40) mm/Hg VBG HCO3 (22-28) meq/L VBG O2 Sat (Adelfo) (95-100) VBG Base Excess (-2.0-2.0) VBG Hemoglobin VBG Carboxyhemoglobin (0.0-6.9) % T HGB POC Potassium (3.5-5.1) Sodium 139 (137-145) mmol/L Potassium 4.4 (3.5-5.1) mmol/L Chloride 90 L (98-107) mmol/L Carbon Dioxide 42 H (22-30) mmol/L Anion Gap 11.4 (5-15) MEQ/L BUN 17 (7-17) mg/dL Creatinine 1.00 (0.52-1.04) mg/dL Estimated GFR 55.9 ML/MIN Glucose 102 (74-106) mg/dL Lactic Acid (0.4-2.0) Calcium 9.5 (8.4-10.2) mg/dL Magnesium (1.6-2.3) mg/dL Total Bilirubin (0.2-1.3) mg/dL AST (14-36) U/L ALT (0-35) U/L Alkaline Phosphatase (38-126) U/L Troponin I (0.000-0.034) ng/mL NT-Pro-B Natriuret Pep 2680 H (0-1800) pg/mL Serum Total Protein (6.3-8.2) g/dL Albumin (3.5-5.0) g/dL TSH 3rd Generation (0.47-4.68) mIU/L Urine Color (YELLOW) Urine Appearance (CLEAR) Urine pH (5-6) Ur Specific [place] (1.005-1.025) Urine Protein (Negative) Urine Ketones (NEGATIVE) Urine Blood (0-5) Raudel/ul Urine Nitrite (NEGATIVE) Urine Bilirubin (NEGATIVE) Urine Urobilinogen (0-1) mg/dL Ur Leukocyte Esterase (NEGATIVE) Urine WBC (Auto) (0-5) /HPF Urine RBC (Auto) (0-2) /HPF U Hyaline Cast (Auto) (0-2) /LPF U Epithel Cells (Auto) (FEW) /HPF Urine Bacteria (Auto) (NEGATIVE) /HPF Urine Mucus (Auto) (NEGATIVE) /HPF Urine Culture Reflexed (NO) Urine Glucose (NEGATIVE) mg/dL Slides for Path Review Microbiology 12/26/18 15:42 Urine Culture - Preliminary Catherized NO GROWTH TO DATE - Radiology Impressions Radiology Exams & Impressions: Radiology Procedures Category Date Time Status CHEST 1 VIEW (PORTABLE) Routine Exams 12/27/18 05:58 Taken CHEST 1 VIEW (PORTABLE) Stat Exams 12/26/18 15:45 Completed - Other Procedures and Tests Respiratory Therapy 12/26/18 17:11 EKG PRN Oxygen Nasal Cannula 2 lpm Assessment/Plan (1) Pneumonia Current Visit: Yes Status: Acute Assessment & Plan: on cefepime and nebs due to coming from [facility] Code(s): J18.9 - PNEUMONIA, UNSPECIFIED ORGANISM (2) Acute on chronic systolic (congestive) heart failure Current Visit: Yes Status: Acute Assessment & Plan: on lasix 40mg IV daily Code(s): I50.23 - ACUTE ON CHRONIC SYSTOLIC (CONGESTIVE) HEART FAILURE
[2018-12-27] MEDS ORDERED: TYLENOL 325 MG PO PRN (09:35)
[2018-12-27] MEDS ORDERED: MILK OF MAGNESIA 30 ML PO PRN (09:35)
[2018-12-27] MEDS: LIORESAL 10 MG PO SCH ×2 (09:40→21:37)
[2018-12-27] MEDS: Pepcid 20 MG PO SCH ×2 (09:40→21:36)
[2018-12-27] MEDS: ELIQUIS 2.5 MG TABLET PO SCH ×2 (09:40→21:37)
[2018-12-27] MEDS: Lasix 40 MG/4 ML IV SCH (09:40)
[2018-12-27] MEDS: MAXIPIME 1 GM** 1 G in Dextrose 5%/Water IV Soln. 100ML PLUS BAG 100 ML IV SCH ×2 (09:44→21:36)
--- NOTE | 2018-12-27 09:48 | XRAY ---
Indication: Follow-up pneumonia. Comparison: One day earlier. Portable apical lordotic chest x-ray demonstrates stable right upper lobe interstitial alveolar opacities, chronic lung markings, calcific granulomas, cardiomegaly, and CABG surgery. No new cardiopulmonary abnormalities.
[2018-12-27] MEDS: Protonix 40MG Tablet PO SCH (09:50)
[2018-12-27] MEDS: ceLEXa 20 MG PO SCH (09:51)
[2018-12-27] MEDS: ZYLOPRIM 100 MG PO SCH (09:51)
[2018-12-27] MEDS: Cardizem CD 120 MG PO SCH (09:51)
[2018-12-27] MEDS: Imdur 60MG PO SCH (09:51)
[2018-12-27] MEDS ORDERED: DILTIAZEM HCL PO SCH (10:00)
[2018-12-27] MEDS ORDERED: CITALOPRAM HYDROBROMIDE 20 MG PO SCH (10:00)
[2018-12-27] MEDS ORDERED: DUONEB 0.5-3 MG/3 ml Neb IH PRN (10:00)
[2018-12-27] MEDS ORDERED: Lasix 40 MG PO SCH (10:00)
[2018-12-27] MEDS: SYNTHROID 25 MCG PO SCH (11:36)
[2018-12-27] MEDS: Zocor 10MG PO SCH (21:36)
[2018-12-27] MEDS: CLARITIN 10 MG PO SCH (21:36)
[2018-12-27] MEDS: Flonase NASAL NS SCH (21:37)
[2018-12-27] MEDS: XANAX 1 MG PO SCH (21:37)
[2018-12-28 06:40] LABS: BASOPHIL % 0.3 % (0.0-0.4); Basophil (Absolute #) 0.01 (0-0.4); Eosinophil % 3.8 % (0.00-5.0); Eosinophil (Absolute #) 0.15 (0-0.5); Granulocyte Absolute (ANC) 2.17 (1.4-6.9); Hematocrit 36.6 % (35-47); Hemoglobin 10.6 gm/dl (12.0-16.0); Lymphocyte (Absolute #) 0.89 (1.0-4.6); Lymphocytes % 22.6 % (24.0-44.0); Mean Cell Volume 105.5 fl (78-100); Mean Corpuscular Hemoglobin 30.5 pg (26-32); Mean Platelet Volume 11.7 fl (6-9.5); Monocyte (Absolute #) 0.72 (0.0-1.3); Monocytes % 18.3 % (0.0-12.0); Platelet Count 171 K/mm3 (150-450); Red Blood Count 3.47 M/mm3 (4.1-5.4); Red Cell Distribution Width 14.9 % (11.5-14.0); White Blood Count 3.9 K/mm3 (4.0-10.5)
[2018-12-28 07:05] LABS: Calcium 9.4 mg/dL (8.4-10.2); Creatinine 1 0.95 mg/dL (0.52-1.04); Potassium 4.5 mmol/L (3.5-5.1)
[2018-12-28 07:21] LABS: ANION GAP 11.5 MEQ/L (5-15)
[2018-12-28] MEDS: Cardizem CD 120 MG PO SCH (09:19)
[2018-12-28] MEDS: SYNTHROID 25 MCG PO SCH (09:20)
[2018-12-28] MEDS: Pepcid 20 MG PO SCH ×2 (09:20→21:34)
[2018-12-28] MEDS: Colace 100 MG PO PRN ×2 (09:21→21:34)
[2018-12-28] MEDS: ceLEXa 20 MG PO SCH (09:21)
[2018-12-28] MEDS: LIORESAL 10 MG PO SCH ×2 (09:22→21:35)
[2018-12-28] MEDS: Protonix 40MG Tablet PO SCH (09:22)
[2018-12-28] MEDS: ELIQUIS 2.5 MG TABLET PO SCH ×2 (09:22→21:31)
[2018-12-28] MEDS: Imdur 60MG PO SCH (09:22)
[2018-12-28] MEDS: ZYLOPRIM 100 MG PO SCH (09:22)
[2018-12-28] MEDS: Lasix 40 MG/4 ML IV SCH ×2 (09:23→21:38)
[2018-12-28] MEDS: MAXIPIME 1 GM** 1 G in Dextrose 5%/Water IV Soln. 100ML PLUS BAG 100 ML IV SCH ×2 (09:26→21:36)
[2018-12-28] MEDS: TYLENOL 325 MG PO PRN ×2 (13:30→21:34)
[2018-12-28] MEDS: CLARITIN 10 MG PO SCH (21:34)
[2018-12-28] MEDS: XANAX 1 MG PO SCH (21:35)
[2018-12-28] MEDS: Zocor 10MG PO SCH (21:35)
[2018-12-28] MEDS: Flonase NASAL NS SCH (21:36)
[2018-12-29 07:23] LABS: Hematocrit 33.5 % (35-47); Hemoglobin 9.7 gm/dl (12.0-16.0); Mean Corpuscular Hemoglobin 30.4 pg (26-32); Mean Platelet Volume 12.1 fl (6-9.5); Platelet Count 153 K/mm3 (150-450); Red Blood Count 3.19 M/mm3 (4.1-5.4); Red Cell Distribution Width 14.7 % (11.5-14.0); White Blood Count 3.9 K/mm3 (4.0-10.5)
[2018-12-29 08:19] LABS: ALBUMIN 3.1 g/dL (3.5-5.0); BILIRUBIN,TOTAL 0.7 mg/dL (0.2-1.3); Calcium 9.2 mg/dL (8.4-10.2); Creatinine 1 0.98 mg/dL (0.52-1.04); Potassium 4.2 mmol/L (3.5-5.1); Total Protein 5.5 g/dL (6.3-8.2)
[2018-12-29 08:20] LABS: ANION GAP 15.2 MEQ/L (5-15)
[2018-12-29] MEDS: ZYLOPRIM 100 MG PO SCH (10:48)
[2018-12-29] MEDS: SYNTHROID 25 MCG PO SCH (10:48)
[2018-12-29] MEDS: Pepcid 20 MG PO SCH ×2 (10:48→20:46)
[2018-12-29] MEDS: LIORESAL 10 MG PO SCH ×2 (10:48→20:46)
[2018-12-29] MEDS: Protonix 40MG Tablet PO SCH (10:49)
[2018-12-29] MEDS: Cardizem CD 120 MG PO SCH (10:49)
[2018-12-29] MEDS: ceLEXa 20 MG PO SCH (10:49)
[2018-12-29] MEDS: Lasix 40 MG/4 ML IV SCH ×2 (10:49→20:45)
[2018-12-29] MEDS: Imdur 60MG PO SCH (10:49)
[2018-12-29] MEDS: ELIQUIS 2.5 MG TABLET PO SCH ×2 (10:49→20:46)
[2018-12-29] MEDS: MAXIPIME 1 GM** 1 G in Dextrose 5%/Water IV Soln. 100ML PLUS BAG 100 ML IV SCH ×2 (11:03→20:58)
[2018-12-29] MEDS: Zocor 10MG PO SCH (20:45)
[2018-12-29] MEDS: CLARITIN 10 MG PO SCH (20:46)
[2018-12-29] MEDS: XANAX 1 MG PO SCH (20:46)
[2018-12-29] MEDS: Flonase NASAL NS SCH (20:47)
[2018-12-30 05:56] LABS: Hematocrit 32.6 % (35-47); Hemoglobin 9.3 gm/dl (12.0-16.0); Mean Cell Volume 105.2 fl (78-100); Mean Corpuscular Hgb Concent. 28.5 g/dl (32-36); Platelet Count 140 K/mm3 (150-450); Red Cell Distribution Width 14.9 % (11.5-14.0); White Blood Count 3.3 K/mm3 (4.0-10.5)
[2018-12-30 06:22] LABS: Calcium 9.1 mg/dL (8.4-10.2); Creatinine 1 1.1 mg/dL (0.52-1.04); Potassium 3.9 mmol/L (3.5-5.1)
[2018-12-30 06:38] LABS: Slide Review YES
[2018-12-30 06:45] LABS: ANION GAP 11.9 MEQ/L (5-15)
--- NOTE | 2018-12-30 07:58 | XRAY ---
Indication: Pulmonary embolus. Superior vena cava syndrome. Multiple contiguous axial images obtained through the chest using 80 cc Isovue 370 contrast and PE protocol. Comparison: None There is satisfactory opacification of the pulmonary arteries. However mild respiration artifact limits evaluation of the more distal lobar and segmental branches. No central pulmonary embolus. Left main pulmonary artery measures 3 cm and the right measures 2.8 cm in diameter as seen in pulmonary hypertension. Heart is enlarged with CABG surgery. Aorta is moderately atherosclerotic without aneurysmal dilatation. Superior vena cava unremarkable. A few mediastinal calcified nodes. No pathologic mediastinal/hilar lymphadenopathy. Examination of the lung parenchyma demonstrates moderate bilateral pleural effusions with mild compressive atelectasis greatest lung bases. Patchy groundglass airspace opacities in both upper lobes, right greater than left. Scattered fibrosis/scarring and a few calcified granulomas. Bony thorax demonstrates osteopenia, mild degenerative changes throughout spine, and sternotomy wires. Limited upper abdomen demonstrates cholecystectomy and anasarca. Impression: 1. Pulmonary embolus evaluation limited by respiration artifact. No central pulmonary embolus. Enlarged main pulmonary arteries favoring pulmonary hypertension. 2. Cardiomegaly with bilateral effusions, compressive atelectasis, and anasarca favoring cardiac decompensation. 3. Bilateral upper lobe patchy groundglass airspace opacities. Rule out superimposed pneumonia. Comment: Preliminary interpretation was made by [facility] who reports pulmonary emboli in segmental/subsegmental branches which I cannot appreciate due to respiration artifact. CTDI 20.00
--- NOTE | 2018-12-30 08:11 | PCM.NOTE ---
Date and Time: 12/30/18809 Subjective Assessment: patient reports she is feeling better, still has swelling but is improved. no new complaints, states she refuses to return to [place] on discharge Objective Exam General Appearance: no apparent distress, obese Neurologic Exam: alert Skin Exam: normal color, warm, dry Respiratory Exam: normal breath sounds, lungs clear, No respiratory distress Cardiovascular Exam: regular rate/rhythm, normal heart sounds Gastrointestinal/Abdomen Exam: soft Extremity Exam: pedal edema, swelling OBJECTIVE DATA Vital Signs: Vital Signs - 24 hr Temp Pulse Resp BP Pulse Ox 12/30/18 07:46 98.1 F 93 H 20 124/72 93 L 12/30/18 06:51 110 H 16 96 12/30/18 04:00 97.9 F 97 H 18 130/69 93 L 12/29/18 23:33 97.9 F 94 H 19 119/65 94 L 12/29/18 20:00 97.9 F 89 19 130/73 93 L 12/29/18 19:55 93 H 20 93 L 12/29/18 16:00 97.7 F 96 H 20 128/73 93 L 12/29/18 12:00 98.5 F 97 H 201 H 105/56 94 L Oxygen-Last 24 hours O2 Percentage 5 Liters = 40% O2 Percentage 5 Liters = 40% O2 Percentage 5 Liters = 40% O2 Percentage 5 Liters = 40% Pain Assessment - Last Documented Pain Intensity 0 Pain Scale Used 0-10 Pain Scale,FLACC Intake and Output: Intake & Output 12/27/18 12/28/18 12/29/18 12/30/18 11:59 11:59 11:59 11:59 Intake Total 971 3874 364 2318 Output Total 975 1200 2150 1200 Balance -4 400 -1189 900 Weight 92.3 kg 93.1 kg 92.7 kg 93.7 kg Lab Results: Lab Results-Last 24 Hours 12/29/18 12/30/18 12/30/18 Range/Units 06:45 05:00 05:00 WBC 3.3 L (4.0-10.5) K/mm3 RBC 3.10 L (4.1-5.4) M/mm3 Hgb 9.3 L (12.0-16.0) gm/dl Hct 32.6 L (35-47) % MCV 105.2 H (78-100) fl MCH 30.0 (26-32) pg MCHC 28.5 L (32-36) g/dl RDW 14.9 H (11.5-14.0) % Plt Count 140 L (150-450) K/mm3 MPV 12.0 H (6-9.5) fl Sodium 141 138 (137-145) mmol/L Potassium 4.2 3.9 (3.5-5.1) mmol/L Chloride 89 L 88 L (98-107) mmol/L Carbon Dioxide 41 H 42 H (22-30) mmol/L Anion Gap 15.2 H 11.9 (5-15) MEQ/L BUN 22 H 24 H (7-17) mg/dL Creatinine 0.98 1.10 H (0.52-1.04) mg/dL Estimated GFR 57.2 50.1 ML/MIN Glucose 90 81 (74-106) mg/dL Calcium 9.2 9.1 (8.4-10.2) mg/dL Total Bilirubin 0.70 (0.2-1.3) mg/dL AST 25 (14-36) U/L ALT 11 (0-35) U/L Alkaline Phosphatase 59 (38-126) U/L Serum Total Protein 5.5 L (6.3-8.2) g/dL Albumin 3.1 L (3.5-5.0) g/dL Slides for Path Review YES Radiology Exams: Radiology Procedures Category Date Time Status CHEST WITH CONTRAST [CT] Routine Exams 12/28/18 10:49 Completed Assessment/Plan (1) Pneumonia Current Visit: Yes Status: Acute Assessment & Plan: continue cefepime due to ECF stay during illness Code(s): J18.9 - PNEUMONIA, UNSPECIFIED ORGANISM (2) Acute on chronic systolic (congestive) heart failure Current Visit: Yes Status: Acute Assessment & Plan: improved clinically, on lasix 40mg IV q12 hrs Code(s): I50.23 - ACUTE ON CHRONIC SYSTOLIC (CONGESTIVE) HEART FAILURE
[2018-12-30] MEDS: Lasix 40 MG/4 ML IV SCH ×2 (08:40→21:25)
[2018-12-30] MEDS: Protonix 40MG Tablet PO SCH (08:41)
[2018-12-30] MEDS: SYNTHROID 25 MCG PO SCH (08:41)
[2018-12-30] MEDS: LIORESAL 10 MG PO SCH ×2 (08:41→21:32)
[2018-12-30] MEDS: Pepcid 20 MG PO SCH ×2 (08:41→21:33)
[2018-12-30] MEDS: Cardizem CD 120 MG PO SCH (08:41)
[2018-12-30] MEDS: ZYLOPRIM 100 MG PO SCH (08:41)
[2018-12-30] MEDS: ELIQUIS 2.5 MG TABLET PO SCH ×2 (08:41→21:33)
[2018-12-30] MEDS: ceLEXa 20 MG PO SCH (08:41)
[2018-12-30] MEDS: Imdur 60MG PO SCH (08:42)
[2018-12-30] MEDS: Colace 100 MG PO PRN (10:51)
[2018-12-30] MEDS: MAXIPIME 1 GM** 1 G in Dextrose 5%/Water IV Soln. 100ML PLUS BAG 100 ML IV SCH ×2 (10:52→21:21)
[2018-12-30] MEDS: XANAX 1 MG PO SCH (21:32)
[2018-12-30] MEDS: Zocor 10MG PO SCH (21:32)
[2018-12-30] MEDS: CLARITIN 10 MG PO SCH (21:33)
[2018-12-30] MEDS: Flonase NASAL NS SCH (21:49)
[2018-12-31 05:08] LABS: BASOPHIL % 0.2 % (0.0-0.4); Basophil (Absolute #) 0.01 (0-0.4); Eosinophil (Absolute #) 0.16 (0-0.5); Granulocyte Absolute (ANC) 2.22 (1.4-6.9); Granulocytes % 55.1 % (36.0-66.0); Hematocrit 35.3 % (35-47); Hemoglobin 10.2 gm/dl (12.0-16.0); Lymphocyte (Absolute #) 0.92 (1.0-4.6); Lymphocytes % 22.8 % (24.0-44.0); Mean Cell Volume 103.5 fl (78-100); Mean Corpuscular Hemoglobin 29.9 pg (26-32); Mean Corpuscular Hgb Concent. 28.9 g/dl (32-36); Mean Platelet Volume 12.2 fl (6-9.5); Monocyte (Absolute #) 0.72 (0.0-1.3); Monocytes % 17.9 % (0.0-12.0); Platelet Count 143 K/mm3 (150-450); Red Blood Count 3.41 M/mm3 (4.1-5.4); Red Cell Distribution Width 14.9 % (11.5-14.0)
[2018-12-31 05:36] LABS: Calcium 9.5 mg/dL (8.4-10.2); Creatinine 1 1.35 mg/dL (0.52-1.04); Potassium 4.1 mmol/L (3.5-5.1)
[2018-12-31 06:11] LABS: ANION GAP 12.1 MEQ/L (5-15)
[2018-12-31 07:20] LABS: Slide Review 1 YES
[2018-12-31] MEDS: Imdur 60MG PO SCH (09:07)
[2018-12-31] MEDS: ZYLOPRIM 100 MG PO SCH (09:07)
[2018-12-31] MEDS: Protonix 40MG Tablet PO SCH (09:07)
[2018-12-31] MEDS: SYNTHROID 25 MCG PO SCH (09:08)
[2018-12-31] MEDS: ELIQUIS 2.5 MG TABLET PO SCH ×2 (09:08→21:32)
[2018-12-31] MEDS: LIORESAL 10 MG PO SCH ×2 (09:08→21:32)
[2018-12-31] MEDS: ceLEXa 20 MG PO SCH (09:09)
[2018-12-31] MEDS: Pepcid 20 MG PO SCH ×2 (09:09→21:32)
[2018-12-31] MEDS: Cardizem CD 120 MG PO SCH (09:09)
[2018-12-31] MEDS: Lasix 40 MG/4 ML IV SCH ×2 (09:10→21:33)
--- NOTE | 2018-12-31 09:16 | PCM.NOTE ---
Date and Time: 12/31/18914 Subjective Assessment: patient reports she is improving, still has some cough and swelling. no new complaints Objective Exam General Appearance: no apparent distress, obese Skin Exam: normal color, warm, dry Respiratory Exam: rhonchi Cardiovascular Exam: regular rate/rhythm, normal heart sounds Gastrointestinal/Abdomen Exam: soft Extremity Exam: swelling OBJECTIVE DATA Vital Signs: Vital Signs - 24 hr Temp Pulse Resp BP Pulse Ox 12/31/18 07:48 96.7 F 93 H 20 115/65 92 L 12/31/18 07:10 93 L 12/31/18 04:00 97.2 F 97 H 28 H 126/65 90 L 12/31/18 00:00 98.9 F 99 H 24 115/57 91 L 12/30/18 21:00 90 18 93 L 12/30/18 19:56 98.3 F 99 H 18 124/70 93 L 12/30/18 15:39 98.4 F 91 H 20 119/63 92 L 12/30/18 11:37 98.2 F 97 H 20 116/56 92 L Oxygen-Last 24 hours O2 Percentage 5 Liters = 40% O2 Percentage 5 Liters = 40% O2 Percentage 5 Liters = 40% O2 Percentage 5 Liters = 40% O2 Percentage 5 Liters = 40% Pain Assessment - Last Documented Pain Intensity 0 Pain Scale Used 0-10 Pain Scale Intake and Output: Intake & Output 12/28/18 12/29/18 12/30/18 12/31/18 11:59 11:59 11:59 11:59 Intake Total 0238 324 6460 1510 Output Total 1200 2150 1200 1175 Balance 400 -1189 1200 335 Weight 93.1 kg 92.7 kg 93.7 kg 92.7 kg Lab Results: Lab Results-Last 24 Hours 12/31/18 12/31/18 Range/Units 04:35 04:35 WBC 4.0 (4.0-10.5) K/mm3 RBC 3.41 L (4.1-5.4) M/mm3 Hgb 10.2 L (12.0-16.0) gm/dl Hct 35.3 (35-47) % MCV 103.5 H (78-100) fl MCH 29.9 (26-32) pg MCHC 28.9 L (32-36) g/dl RDW 14.9 H (11.5-14.0) % Plt Count 143 L (150-450) K/mm3 MPV 12.2 H (6-9.5) fl Gran % 55.1 (36.0-66.0) % Eos # (Auto) 0.16 (0-0.5) Absolute Lymphs (auto) 0.92 L (1.0-4.6) Absolute Monos (auto) 0.72 (0.0-1.3) Lymphocytes % 22.8 L (24.0-44.0) % Monocytes % 17.9 H (0.0-12.0) % Eosinophils % 4.0 (0.00-5.0) % Basophils % 0.2 (0.0-0.4) % Absolute Granulocytes 2.22 (1.4-6.9) Basophils # 0.01 (0-0.4) Sodium 138 (137-145) mmol/L Potassium 4.1 (3.5-5.1) mmol/L Chloride 88 L (98-107) mmol/L Carbon Dioxide 42 H (22-30) mmol/L Anion Gap 12.1 (5-15) MEQ/L BUN 27 H (7-17) mg/dL Creatinine 1.35 H (0.52-1.04) mg/dL Estimated GFR 39.5 ML/MIN Glucose 96 (74-106) mg/dL Calcium 9.5 (8.4-10.2) mg/dL NT-Pro-B Natriuret Pep 3330 H (0-1800) pg/mL Slides for Path Review YES Multi-Disciplinary Progress Notes: Multi-Disciplinary Progress Notes 12/30/18 14:28 Case Management Note by Riddhi Adame SPOKE WITH [facility]EMA AT [facility] [address], THEY WILL HAVE A REHAB BED AVAILABLE WHEN PT IS READY FOR DISCHARGE. Initialized on 12/30/18 14:28 - END OF NOTE Assessment/Plan (1) Pneumonia Current Visit: Yes Status: Acute Assessment & Plan: on cefepime, no fever and wbc normal. clinically improved Code(s): J18.9 - PNEUMONIA, UNSPECIFIED ORGANISM (2) Acute on chronic systolic (congestive) heart failure Current Visit: Yes Status: Acute Assessment & Plan: fluid balance was negative initially, nearly neutral yesterday in spite of IV lasix. may well be euvolemic or nearing it at this time. will continue IV lasix today, repeat labs in am. might be ready to d/c to [facility] in the next day or two Code(s): I50.23 - ACUTE ON CHRONIC SYSTOLIC (CONGESTIVE) HEART FAILURE
[2018-12-31] MEDS: MAXIPIME 1 GM** 1 G in Dextrose 5%/Water IV Soln. 100ML PLUS BAG 100 ML IV SCH ×2 (09:21→21:32)
[2018-12-31] MEDS: Colace 100 MG PO PRN (12:51)
[2018-12-31] MEDS: Zocor 10MG PO SCH (21:32)
[2018-12-31] MEDS: CLARITIN 10 MG PO SCH (21:32)
[2018-12-31] MEDS: XANAX 1 MG PO SCH (21:32)
[2018-12-31] MEDS: Flonase NASAL NS SCH (21:33)
[2018-12-31] MEDS: TYLENOL 325 MG PO PRN (21:33)
[2019-01-01 05:01] LABS: Hematocrit 32.7 % (35-47); Hemoglobin 9.5 gm/dl (12.0-16.0); Mean Cell Volume 103.2 fl (78-100); Mean Corpuscular Hgb Concent. 29.1 g/dl (32-36); Mean Platelet Volume 12.2 fl (6-9.5); Platelet Count 116 K/mm3 (150-450); Red Blood Count 3.17 M/mm3 (4.1-5.4); Red Cell Distribution Width 14.9 % (11.5-14.0)
[2019-01-01 05:05] LABS: Mean Corpuscular Hemoglobin 29.9 pg (26-32)
[2019-01-01 05:40] LABS: Creatinine 1 1.48 mg/dL (0.52-1.04); MAGNESIUM 1.8 mg/dL (1.6-2.3)
[2019-01-01 06:45] LABS: Eosinophil 2 % (0.00-3.0); Lymphocytes 18 % (24-44); Monocyte 2 % (0.0-12.0); Neutrophils 78 % (36.0-66.0); Total Cells Counted 100
[2019-01-01 06:46] LABS: ANISOCYTOSIS 1+; Poikilocytosis 1+
[2019-01-01 06:49] LABS: Platelet Estimate NORMAL (NORMAL)
--- NOTE | 2019-01-01 08:51 | PCM.DS ---
Discharge Summary Date of Admission: 12/26/18 17:25 Admitting Physician: LAUREN VALENZUELA Primary Care Provider: [facility] Allergies Allergies codeine Allergy (Verified 12/26/18 15:11) gabapentin Allergy (Verified 12/26/18 15:11) Penicillins Allergy (Verified 12/26/18 15:11) Hospital Summary - Hospital Course Hospital Course: patient was admitted from local [facility] with worsening swelling and cough. has early infiltrate on chest xray so was treated with cefepime due to ECF, her swelling improved slightly with diuresis, bun/cr started to rise mildly so no further diuresis recommend. she was transferred previously with acute renal failure from over-diuresis. she did have a chest ct that shows PE which are known with possible acute/subacute component. she is on eliquis, advised that her upper extremity edema will likely improve with absorption of clots etc and may well be chronic at this stage. she is discharging to [facility] as she refuses to return to [facility] at this time. - Vitals & Intake/Output Vital Signs: Vital Signs Temperature 98.3 F 01/01/19 06:53 Pulse Rate 92 H 01/01/19 06:53 Respiratory Rate 18 01/01/19 06:53 Blood Pressure 130/72 01/01/19 06:53 O2 Sat by Pulse Oximetry 97 01/01/19 06:53 Oxygen-Last Documented O2 Percentage 3 Liters = 32% Intake & Output: Intake & Output 12/29/18 12/30/18 12/31/18 01/01/19 11:59 11:59 11:59 11:59 Intake Total 961 2400 1510 1055 Output Total 2150 1200 1175 1050 Balance -1189 1200 335 5 Weight 92.7 kg 93.7 kg 92.7 kg 92.5 kg - Lab Result Diagrams: 01/01/19 04:35 01/01/19 04:35 Lab Results-Last 24 Hrs: Lab Results-Last 24 Hours 01/01/19 01/01/19 Range/Units 04:35 04:35 WBC 4.0 (4.0-10.5) K/mm3 RBC 3.17 L (4.1-5.4) M/mm3 Hgb 9.5 L (12.0-16.0) gm/dl Hct 32.7 L (35-47) % MCV 103.2 H (78-100) fl MCH 29.9 (26-32) pg MCHC 29.1 L (32-36) g/dl RDW 14.9 H (11.5-14.0) % Plt Count 116 L (150-450) K/mm3 MPV 12.2 H (6-9.5) fl Segmented Neutrophils 78 H (36.0-66.0) % Lymphocytes (Manual) 18 L (24-44) % Monocytes (Manual) 2 (0.0-12.0) % Eosinophils (Manual) 2 (0.00-3.0) % Platelet Estimate NORMAL (NORMAL) RBC Morphology ABNORMAL Poikilocytosis 1+ Anisocytosis 1+ Sodium 136 L (137-145) mmol/L Potassium 4.0 (3.5-5.1) mmol/L Chloride 87 L (98-107) mmol/L Carbon Dioxide 41 H (22-30) mmol/L Anion Gap 12.0 (5-15) MEQ/L BUN 31 H (7-17) mg/dL Creatinine 1.48 H (0.52-1.04) mg/dL Estimated GFR 35.5 ML/MIN Glucose 110 H (74-106) mg/dL Calcium 9.0 (8.4-10.2) mg/dL Magnesium 1.8 (1.6-2.3) mg/dL NT-Pro-B Natriuret Pep 3580 H (0-1800) pg/mL Micro Results-Entire Visit: Microbiology 12/26/18 15:15 Blood Culture Gram Stain - Final Blood Not Reportable Blood Culture - Final NO GROWTH 12/26/18 14:55 Blood Culture Gram Stain - Final Blood Not Reportable Blood Culture - Final NO GROWTH 12/26/18 15:42 Urine Culture - Final Catherized NO GROWTH - Procedures and Test Procedures and Tests throughout Hospitalization: Therapy Orders & Screens 12/26/18 17:11 EKG PRN Comment: Oxygen Nasal Cannula 2 lpm Comment: 12/26/18 18:17 PT Screen per Nursing Assess Comment: Protocol Order Physician Instructions: Greater than 3 points order PT Admission Screenin Reason For Exam: Triggered on Admission Diagnosis: RUL Pneumonia, Dyspnea, Edema Open Wound/Cellutlitis/Pressure Ulcers: No Acute Fx/ORIF/Change in wt bearing status: No Severe MUSCULOSKELETAL pain: No ADL Dysfunction: Yes Acute CVA w/Hemiparesis/Hemiplegia: No Decreased Functional Mobility/Strength: Yes Sprain/Strain: No Acute Post-op Mobility Dysfunction: No Total Points: 4 RT Screen per Nursing Assess ONCE Comment: Protocol Order Physician Instructions: Greater than 3 points order RT Admission Screen Reason For Exam: Triggered on Admission Diagnosis: RUL Pneumonia, Dyspnea, Edema Diagnosis: RUL Pneumonia, Dyspnea, Edema Pneumonia: Yes Home O2: Yes Asthma: Yes CHF: Yes Home CPAP/BIPAP: No Home Nebs/MDI: Yes Total Points: 20 12/27/18 09:42 Respiratory Therapy Assessment DAILY Comment: Diagnosis: RUL Pneumonia, Dyspnea, Edema 12/30/18 08:23 PT Eval & Treat (MD Order) ROUTINE Reason for Eval:: weakness Diagnosis: RUL Pneumonia, Dyspnea, Edema Discharge Exam General Appearance: no apparent distress, alert Respiratory Exam: normal breath sounds, lungs clear, No respiratory distress Cardiovascular Exam: regular rate/rhythm, normal heart sounds Gastrointestinal/Abdomen Exam: soft, No tenderness, No mass Extremity Exam: swelling (trace lower extremities, 2+ pitting to [place] forearms) Final Diagnosis/Problem List - Final Discharge Diagnosis/Problem (1) Pneumonia Current Visit: Yes Status: Acute Assessment & Plan: has completed 7 days of cefepime at this time, wbc normal and no fever, cough improved. no further abx required. Code(s): J18.9 - PNEUMONIA, UNSPECIFIED ORGANISM (2) Acute on chronic systolic (congestive) heart failure Current Visit: Yes Status: Acute Code(s): I50.23 - ACUTE ON CHRONIC SYSTOLIC (CONGESTIVE) HEART FAILURE (3) Pulmonary embolism Current Visit: Yes Status: Acute Code(s): I26.99 - OTHER PULMONARY EMBOLISM WITHOUT ACUTE COR PULMONALE - Discharge Disposition: DC TO ANY "OTHER" CUSTODIAL Condition: Fair Prescriptions: Continue Allopurinol 100 mg [Zyloprim 100 mg] 100 mg PO DAILY Diltiazem HCl 240 mg [Cardizem CD 240 MG] 120 mg PO DAILY Loratadine 10 mg [Claritin 10 mg] 10 mg PO QHS Isosorbide Mononitrate 60 mg [Imdur 60MG] 60 mg PO QAM Fluticasone Propionate [Flonase NASAL] 1 spray NS HS Citalopram Hydrobromide [Citalopram HBr] 20 mg PO DAILY Apixaban [Eliquis] 2.5 mg PO BID Buspirone HCl 5 mg [Buspar 5 mg] 5 mg PO BIDPRN PRN PRN Reason: Anxiety Albuterol Sulfate [Ventolin Hfa] 8 gm IH Q4HPRN PRN PRN Reason: Shortness Of Breath Baclofen 10 mg PO BID Acetaminophen 325 mg [Tylenol 325 mg] 650 mg PO Q4HPRN PRN PRN Reason: Pain Magnesium Hydroxide 30 ml [Milk of Magnesia 30 ml] 30 ml PO DAILY PRN PRN PRN Reason: stool softener Guaifenesin 600 mg ER [Mucinex 600MG ER Tabs] 600 mg PO Q6HPRN PRN PRN Reason: Allergies Simvastatin 10 mg [Zocor 10MG] 10 mg PO QPM Pantoprazole Sodium [Protonix] 40 mg PO DAILY Furosemide 40 mg [Lasix 40 MG] 40 mg PO DAILY Albuterol/Ipratropium 3ml Neb* [DUONEB 0.5-3 MG/3 ml Neb] 3 ml IH QID Changed Alprazolam 1 mg [Xanax 1 mg] 0.5 mg PO BID PRN #20 tablet Discontinued Alprazolam 1 mg [Xanax 1 mg] 1 mg PO QHS
[2019-01-01] MEDS: Lasix 40 MG/4 ML IV SCH (09:12)
[2019-01-01] MEDS: Cardizem CD 120 MG PO SCH (09:12)
[2019-01-01] MEDS: SYNTHROID 25 MCG PO SCH (09:12)
[2019-01-01] MEDS: ZYLOPRIM 100 MG PO SCH (09:13)
[2019-01-01] MEDS: ceLEXa 20 MG PO SCH (09:13)
[2019-01-01] MEDS: ELIQUIS 2.5 MG TABLET PO SCH (09:13)
[2019-01-01] MEDS: LIORESAL 10 MG PO SCH (09:13)
[2019-01-01] MEDS: Pepcid 20 MG PO SCH (09:13)
[2019-01-01] MEDS: Protonix 40MG Tablet PO SCH (09:13)
[2019-01-01] MEDS: Imdur 60MG PO SCH (09:13)
[2019-01-01] MEDS: MAXIPIME 1 GM** 1 G in Dextrose 5%/Water IV Soln. 100ML PLUS BAG 100 ML IV SCH (09:17)
[2019-01-01 11:47] VITALS: BP 122/73; PULSE 101; O2SAT 94
== END 2019-01-01 11:50 | DRG 193 ==
LOC: ED 14:30 → MED SURG 17:25
PROVIDERS: ADMIT Family Medicine; ATTEND Family Medicine
DX: J18.9 Pneumonia, unspecified organism (principal); I50.23 Acute on chronic systolic (congestive) heart failure; I26.99 Other pulmonary embolism without acute cor pulmonale; R60.0 Localized edema; E03.9 Hypothyroidism, unspecified; Z79.01 Long term (current) use of anticoagulants; Z79.899 Other long term (current) drug therapy; Z86.711 Personal history of pulmonary embolism; J44.9 Chronic obstructive pulmonary disease, unspecified
CPT/HCPCS: 36000; 36415; 51702; 71045; 71260; 80048; 80053; 81001; 82805; 83605; 83735; 83880; 84443; 84484; 85025; 85027; 85610; 85730; 87040; 87086; 93005; 93041; 94760; 94762; 99285; J0692; J1940; A9270-GY